=== PATIENT | female | born 1960 | race Caucasian/White ===

== ENCOUNTER 2016-11-13 05:10 | Day surgery (SDC) | payer OTHER, BC ==
[2016-11-08 12:07] VITALS: BMI 30.6
--- NOTE | 2016-11-12 08:04 | HP ---
[facility] - Chief Complaint Chief Complaint: PT HAS HAD 2 RECENT EPISODES OF POSTMENOPAUSAL BLEEDING. History of Present Illness: Pt has an episode of postmenopausal bleeding in and 10/01. PT also has had a recurrence of a condyloma on the area between the anus and vaginal introitus. History Source: Patient Limitations to Obtaining History: No Limitations - Past Medical History Allergies/Adverse Reactions: Allergies Allergy/AdvReac Type Severity Reaction Status Date / Time No Known Drug Allergies Allergy Verified 11/08/16 12:07 AUTOCAD: No: Alzheimer's, CVA, Dementia, Migraine, Multiple Sclerosis, Peripheral Neuropathy, Parkinson's, Seizure, Syncope, TIA, Vertigo, Other Cardiovascular: No: AFIB, Aneurysm, Aortic Insufficiency, Aortic Stenosis, CAD, CHF, Deep Vein Thrombosis, HTN, Hyperlipdemia, [place], Mitral Insufficiency, Mitral Stenosis, Murmur, Pulmonary Hypertension, Other Pulmonary: No: Asthma, Bronchitis, Cancer, COPD, O2 Dependent, Pneumonia, Previously Intubated, Pulmonary Embolus, Pulmonary Fibrosis, Sleep Apnea, Other Gastrointestinal: No: Ascites, Cancer, Constipation, Crohn's Disease, Diverticulitis, Diverticulosis, Esophageal Varices, Gastritis, GERD, GI Bleed, Hemorrhoids, Hiatal Hernia, Inflamatory Bowel Disease, Irritable Bowel Disease, Pancreatitis, Peptic Ulcer Disease, Ulcerative Colitis, Other Hepatobiliary: No: Cirrhosis, Cholelithiasis, Cholecystitis, Choledocholithiasis , Hepatitis A, Hepatitis B, Hepatitis C, Other Renal/: No: Renal Failure, Renal Inusuff, BPH, Cancer, Hematuria, Hemodialysis , Neurogenic Bladder, Renal Calculi, UTI, Other Reproductive: Yes: Postmenopausal ...LMP: 08/04/12 ...LMP Comment: menopausal ...: No Heme/Onc: No: Anemia, B12 Deficiency, Bleeding Disorder, Cancer, Current Chemotherapy, Current Radiation Therapy, Hemochromatosis, Hypercoaguable State, Myeloproliferative Synd, Sickle Cell Disease, Sickle Cell Trait, Thrombocytopenia, Other Infectious Disease: No: AIDS, C-Diff, Herpes Zoster, HIV, MRSA, STD's, Tuberculosis, VREF, Other Musculoskeletal: No: Bursitis, Chronic low back pain, Hemiparesis, Hemiplegia, Osteoarthritis, Paraplegia, Other Rheumatology: No: Fibromyalgia, Gout, Lupus, Rheumatoid Arthritis, Sarcoidosis, Vasculitis, Other ENT: No: Allergic Rhinitis, Sinusitis, Other Endocrine: Yes: Hypothyroidism Dermatology: No: Basal Cell, Cellulitis, Eczema, Melanoma, Psoriasis, Squamous Cell (Hx of hypertension.), Other Additional Medical History: Hx of hypertension and back surgeries. - Current Medications Current Medications: Home Medications Medication Instructions Recorded Hydrocortisone [Cortef] 100 mg PO BID 03/05/15 Multivitamins [Multivit ([facility] 1 tab PO DAILY 08/22/15 Formulary)] Levothyroxine [Synthroid -] 75 mcg PO DAILY 10/19/15 Satellite Physical Exam - Physical Examination General Appearance: Well Nourished, Well Developed, Alert & Oriented x3 ENT: Clear, No Discharge, No masses Lung: Clear to auscultation Heart: Regular rate & rhythm, Normal S1, Normal S2 Breasts: Soft, Non-Tender, No masses bilaterally Abdomen: Soft, No tenderness, No CVA Extremities: No edema, No tenderness/swelling Pelvic Exam: Within normal limits External Genitalia, Within normal limits Vagina, Within normal limits Cervix, Within normal limits Uterus, Within normal limits [facility]: Intact, Alert, Oriented Satellite Impression/Plan - Impression/Plan Impression: Postmenopausal bleeding and vulvar condyloma. Operative Procedure: Hysteroscopy with D/C and removal of vulvar condyloma Date to be Performed: 11/13/16
[2016-11-13] MEDS ORDERED: PROPOFOL 20 ML ONE ×2 (07:45)
[2016-11-13] MEDS ORDERED: MIDAZOLAM HCL 2 MG/2 ML SINGLE DOSE VIAL ONE (07:45)
[2016-11-13] MEDS ORDERED: LIDOCAINE 1%/EPI 1:100000 (50 ML MULTI DOSE VIAL) ONE (08:18)
[2016-11-13] MEDS ORDERED: LIDOCAINE 1%/EPI 1:100000 (50 ML MULTI DOSE VIAL) PNB ONE (08:21)
[2016-11-13] MEDS ORDERED: LIDOCAINE HCL 2% JELLY 10 ML CARTRIDGE ONE (08:24)
[2016-11-13] MEDS ORDERED: KETOROLAC TROMETHAMINE 30 MG/1 ML VIAL ONE (08:24)
[2016-11-13] MEDS ORDERED: ONDANSETRON 4 MG/2 ML VIAL ONE (08:34)
[2016-11-13] MEDS ORDERED: ACETAMINOPHEN 500 MG TABLET (FP) PO PRN (08:39)
[2016-11-13] MEDS ORDERED: ONDANSETRON 4 MG/2 ML VIAL IVPUSH PRN (08:39)
[2016-11-13] MEDS ORDERED: LACTATED RINGERS SOLUTION 1,000 ML IV SCH (08:45)
--- NOTE | 2016-11-13 09:13 | OP ---
DATE OF OPERATION: 11/13/2016 PREOPERATIVE DIAGNOSES: Postmenopausal bleeding. Vulvar condyloma. OPERATIVE PROCEDURES: Hysteroscopy with dilation and curettage. Biopsy of vulvar condyloma. Destruction of vulvar condyloma. SURGEON: Hussain White MD ANESTHESIA: MAC. ESTIMATED BLOOD LOSS: 1 mL. The patient was brought to the operating room, placed in the supine position, given anesthesia by the anesthesiologist, placed in the lithotomy position, prepped and draped in the usual manner for dilation and curettage. The patient was examined. The uterus was noted to be retroverted, normal-sized, adnexa negative. The anterior lip of the cervix was grasped with a tenaculum. The uterus was sounded to 2.25 inches. The cervix was dilated with Colon dilators. Hysteroscopy was performed. The endometrium appeared atrophic. There were no polyps, no fibroids noted, no signs of hyperplasia. The dilation and curettage was carried out using a small curette. Minimal tissue was obtained which was sent to Pathology for analysis. After the dilation and curettage was completed, the vulvar wart was noted. It was in the perianal area on the left side. It was rectangular in shape. Xylocaine with epinephrine 1.5 mL were used subcutaneously and a biopsy was taken of the wart. The wart was then cauterized using blend 1 30-watt power. Procedure went well. The wart area was treated with Xylocaine gel and hemostasis was excellent. The patient was then transferred to the recovery room in good condition. Aydee PERRIN/[id number]
[2016-11-13 09:39] VITALS: PULSE 60
[2016-11-13 09:57] VITALS: BP 129/79; TEMP 97.5
--- NOTE | 2016-11-15 13:35 | PATH ---
Surgical Pathology Report Patient Name: MOHSEN PABLO [facility]. Rec. #: [id number] /Age/Gender: 1960 (Age: 56) / F Account: [id number] Location: [facility] SURGICAL Taken: 11/13/2016 Received: 11/13/2016 Reported: 11/15/2016 Physicians: Hussain White M.D. Specimen(s) Received A: VULVA WART B: ENDOMETRIAL CURETTINGS Clinical History Condyloma acuminata, vulva Final Diagnosis A. VULVAR WART, BIOPSY: HIGH GRADE SQUAMOUS INTRAEPITHELIAL LESION (VULVAR INTRAEPITHELIAL NEOPLASIA 2-3/ROBERT 2-3). Comment: The biopsy margins appear negative for high grade dysplasia. Clinical correlations are suggested. Immunohistochemical stains for p16 and Ki67 performed at [place], [place] ([id number]) on block A1 interpreted at [facility] show diffuse positive with 16 and increased Ki67 proliferation rate extending to the upper epidermal layers, supporting the interpretation above. B. ENDOMETRIAL TISSUE: POLYPOID FRAGMENTS OF INACTIVE ENDOMETRIUM. Electronically Signed Jori Castro M.D. Gross Description A. Received in formalin labeled "vulvar wart" is a 0.5 x 0.4 cm holley, irregular skin shave. The base is inked blue and the specimen is bisected and entirely submitted in one cassette. B. Received in formalin labeled "endometrial tissue" is a 0.9 x 0.8 x 0.2 cm aggregate of holley brown soft tissue fragments. The formalin is filtered and the specimen is entirely submitted in one cassette. 11/13/201611/13/2016
== END 2016-11-13 09:55 | disposition home or self-care (01) ==
LOC: JASU-SURG 05:10
PROVIDERS: ATTEND Obstetrics & Gynecology
PROC: 0UDB8ZX Extraction of Endometrium, Via Natural or Artificial Opening Endoscopic, Diagnostic (ICD-10-PCS; principal; 2016-11-13 07:30)
PROC: 0H5AXZZ Destruction of Inguinal Skin, External Approach (ICD-10-PCS; 2016-11-13 07:30)
DX: N95.0 Postmenopausal bleeding (principal); A63.0 Anogenital (venereal) warts
CPT/HCPCS: 88305-TC; 94760